=== PATIENT | female | born 1955 | race Caucasian/White ===

== ENCOUNTER 2016-06-30 15:26 | Emergency (ER) | payer OTHER ==
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
[2016-06-30 15:45] VITALS: O2SAT 98
[2016-06-30] MEDS ORDERED: LETS SOLN TOPICAL 1 EA SYR TP ONE ×2 (15:50→16:00)
[2016-06-30 17:40] VITALS: BP 162/79; PULSE 89; RESP 16; TEMP 98.2
== END 2016-06-30 17:40 | disposition home or self-care (01) ==
PROC: 0CQ0XZZ Repair Upper Lip, External Approach (ICD-10-PCS; principal; 2016-06-30)
DX: S52.121A Displaced fracture of head of right radius, initial encounter for closed fracture (principal); S01.511A Laceration without foreign body of lip, initial encounter; Z79.82 Long term (current) use of aspirin; V18.2XXA Unspecified pedal cyclist injured in noncollision transport accident in nontraffic accident, initial encounter
CPT/HCPCS: A4565

== ENCOUNTER → 2016-07-02 | Outpatient (CLI) | payer OTHER | LOC: BMCIMAGING 06-30 14:58 → FIMAGING 16:03 | PROVIDERS: ATTEND Orthopaedic Surgery Hand Surgery | DX: S52.121A Displaced fracture of head of right radius, initial encounter for closed fracture (principal); M25.421 Effusion, right elbow ==

== ENCOUNTER → 2016-10-23 | Outpatient (CLI) | payer OTHER | LOC: FIMAGING 10:10 | PROVIDERS: ATTEND Orthopaedic Surgery Hand Surgery | DX: S52.121D Displaced fracture of head of right radius, subsequent encounter for closed fracture with routine healing (principal) ==

== ENCOUNTER → 2016-11-05 | Outpatient (CLI) | payer OTHER | LOC: FIMAGING 11:52 | PROVIDERS: ATTEND Internal Medicine | DX: Z12.31 Encounter for screening mammogram for malignant neoplasm of breast (principal) | CPT/HCPCS: G0202 ==

== ENCOUNTER → 2016-12-19 | Outpatient (CLI) | payer OTHER | LOC: FIMAGING 16:01 | PROVIDERS: ATTEND Orthopaedic Surgery Hand Surgery | DX: S52.121D Displaced fracture of head of right radius, subsequent encounter for closed fracture with routine healing (principal) ==